=== PATIENT | female | born 1965 | race Caucasian/White ===

== ENCOUNTER 2025-07-21 14:29 | Emergency (ER) | payer MEDICAID, SELFPAY ==
[2025-07-21 14:30] VITALS: BMI 23.4
[2025-07-21 14:54] VITALS: BP 154/85; PULSE 88; RESP 18; TEMP 37.1; O2SAT 99
--- NOTE | 2025-07-21 15:00 | EDNOTE_ITS ---
ED Fall Injury RME/HPI General Chief Complaint: Shortness of Breath/Dyspnea Stated Complaint: MIGHT HAVE BROKEN MY RIB, FALL. SOB, HX OF COPD Time Seen by Provider: 07/21/25 15:01 Source: patient Arrival date/time: 07/21/25 14:29 59-year-old female with a history of COPD presents to the emergency room with a chief complaint of right sided rib pain and shortness of breath after a ground- level fall 1 week ago. Mode of arrival: ambulatory Limitations: no limitations Related Data Previous Rx's ?Medication ?Instructions ?Recorded albuterol sulfate 90 mcg/actuation 2 puff inhalation Q 4HR PRN dyspnea 03/18/17 aerosol inhaler (ProAir HFA) #1 inh docusate sodium 100 mg capsule 100 mg PO BID #60 caps 02/09/18 (Colace) hydrocodone 7.5 mg-acetaminophen 1 tab PO Q6H PRN pain #30 tabs 02/09/18 325 mg tablet (Eclectic) cyclobenzaprine 5 mg tablet 5 mg PO BID #5 tabs Allergies Allergy/AdvReac Type Severity Reaction Status Date / Time No Known Allergies Allergy Verified 07/21/25 14:30 Review of Systems Review of Systems Systems Reviewed: All systems reviewed, normal except as documented Constitutional Constitutional: Reports system reviewed and no additional complaints, except as documented, Denies fatigue, Denies fever(s), Denies headache(s) and Denies weakness Eyes Eyes: Reports system reviewed and no additional complaints, except as documented, Denies blurry vision and Denies change in vision ENT Ears, Nose, Mouth, and Throat: Reports system reviewed and no additional c omplaints, except as documented, Denies otalgia, Denies headache(s), Denies nasal congestion, Denies throat swelling and Denies vertigo Cardiovascular Cardiovascular: Reports system reviewed and no additional complaints, except as documented, Denies chest pain, Denies dyspnea and Denies dyspnea on exertion Respiratory Respiratory: Reports system reviewed and no additional complaints, except as documented, Denies chest congestion, Denies cough, Denies dyspnea, Denies dyspnea on exertion and Denies wheezing Gastrointestinal Gastrointestinal: Reports system reviewed and no additional complaints, except as documented, Denies abdominal pain, Denies cramping, Denies nausea and Denies vomiting Genitourinary Genitourinary: Reports system reviewed and no additional complaints, except as documented Musculoskeletal Musculoskeletal: Reports system reviewed and no additional complaints, except as documented, Reports arthralgias, Denies back pain and Reports joint swelling Integumentary/Breasts Skin/Breast: Reports system reviewed and no additional complaints, except as documented and Denies wounds Neurologic Neurologic: Reports system reviewed and no additional complaints, except as documented, Denies confusion, Denies headache(s), Denies lack of coordination, Denies vertigo and Denies weakness Psychiatric Psychiatric: Reports system reviewed and no additional complaints, except as documented, Denies anxiety, Denies confusion, Denies depression, Denies paranoia, Denies suicidal ideation and Denies tactile hallucinations Endocrine Endocrine: Reports system reviewed and no additional complaints, except as documented and Denies fatigue Hematologic/Lymphatic Hematologic/Lymphatic: Reports system reviewed and no additional complaints, except as documented and Denies lymphadenopathy Allergic/Immunologic Allergic/Immunologic: Reports system reviewed and no additional complaints, except as documented, Denies throat swelling, Denies urticaria and Denies wheezing ED Exam General Limitations: Present no limitations General appearance: Present alert and in no apparent distress Head Head exam: Present atraumatic Eye Eye exam: Present normal appearance, PERRL and EOMI ENT ENT exam: Present normal exam, normal oropharynx and mucous membranes moist Neck Neck exam: Present normal inspection, full ROM and trachea midline Chest Chest inspection: Present normal inspection, symmetric chest wall rise and tenderness Expanded Chest Exam Trauma: Present crepitus Breast: right: tenderness Respiratory Respiratory exam: Present normal lung sounds bilaterally Cardiovascular Cardiovascular exam: Present regular rate, normal rhythm and normal heart sounds Abdominal Exam Abdominal exam: Present soft and normal bowel sounds Extremities Exam Extremities exam: Present normal inspection and full ROM Back Exam Back exam: Present normal inspection and full ROM Neurological Exam Neurological exam: Present alert, oriented X3 and CN II-XII intact Psychiatric Psychiatric exam: Present normal affect and normal mood Skin Skin exam: Present warm, dry, intact and normal color Course Quality Measures none Orders Category Date Time Status XR ribs RT min 3V w CXR1V Stat Exams 07/21/25 15:00 Completed Ketorolac Inj [Toradol Inj] Med 07/21/25 15:00 Discontinued 30 mg IM X1 ONE Vital Signs Vital signs: Vital Signs Temperature 98.7 F 07/21/25 14:54 Pulse Rate 88 07/21/25 14:54 Respiratory Rate 18 07/21/25 14:54 Blood Pressure 154/85 H 07/21/25 14:54 Pulse Oximetry (%) 99 07/21/25 14:54 Oxygen Delivery Method Room Air 07/21/25 14:54 Fall MDM Narrative MDM Narrative:: 59-year-old female with a history of COPD presents to the emergency room with a chief complaint of right sided rib pain and shortness of breath after a ground- level fall 1 week ago. Patient is hemodynamically stable and in no apparent distress. Patient is not tachycardic not tachypneic and O2 saturation is 99% on room air Physical examination shows clear bilateral lung sounds there is no wheezing stridor or any abnormal breath sounds or any loss of breath sounds. X-ray of the ribs was completed and shows an acute fracture of the right fifth rib anteriorly. The patient was placed in a splint and discharged and educated to follow-up with the primary care provider for further management Patient was discharged and educated to follow-up with primary care provider in the next 24 to 48 hours and return to the emergency room for any evidence of worsening signs or symptoms Patient data External records reviewed:: [facility] previous records Clinical information provided by:: patient Social determinants that could affect healthcare access:: none Patient has the following chronic illnesses:: No chronic illness How is presenting disease/condition affected by chronic disease/condition?: no chronic disease Evaluation data The following diagnostics were reviewed and interpreted by me:: lab results and radiology exam(s) Lab and/or radiology exams considered but not ordered:: Labs and radiology exams considered and ordered Interpretation Summary: X-ray ribs-Findings: Normal heart size. No pneumothorax. Prominent osteopenia Acute fracture right fifth rib anteriorly with mild offset IMPRESSION: No pneumothorax Acute fracture right fifth rib anteriorly Medications / Prescriptions Medications or Prescriptions considered but not ordered:: Medication given Medication administrations:: Medication Administration History Discontinued Medications Ketorolac Tromethamine (Ketorolac Inj 60 Mg/2 Ml Vial) 30 mg IM X1 ONE Stop: 07/21/25 15:01 Last Admin: 07/21/25 16:29 Dose: 30 mg Documented By: AYDE Medication given Consultations Consultation(s) initiated? (list below): No Diagnosis Fall Differential Diagnosis: other (Rib contusion/rib fracture) Most likely diagnosis given after review of the tests above:: Rib fracture Admission Indicated Admission indicated?: not indicated Admission Request Was there a request for admission?: No Disposition Plan Disposition Plan: Discharge Discharge Attestation Discharge Attestation: The patient and all family members were given an opportunity to ask questions and understood the discharge instructions. Discharge instructions specifically effects, indications for sooner follow up or return to the emergency department, and the expected course of current diagnosis. Patient condition: Stable Discharge Plan Plan Patient Disposition: HOME (Self Care) Discharge Disposition comment: Stable Prescriptions/Referrals Prescriptions/Med Rec: No Action albuterol sulfate [ProAir HFA] 8.5 GM HFA aerosol inhaler 2 puff Inhalation Q4HR PRN (Reason: dyspnea) Qty: 1 0RF hydrocodone-acetaminophen [Eclectic] 7.5-325 mg tablet 1 tab PO Q6H MDD 4 PRN (Reason: pain) Qty: 30 0RF docusate sodium [Colace] 100 mg capsule 100 mg PO BID Qty: 60 0RF cyclobenzaprine 5 mg tablet 5 mg PO BID Qty: 5 0RF Rx Instructions: Please do not use heavy machinery, do not drive and watch a step while taking this medication. Referrals: Marlene Hoang PA-C [Primary Care Provider, Family Practice] - In 1 week Problem List Clinical Impression: Closed rib fracture Patient/Caregiver Discharge Instructions Education Materials: ED Rib Contusion or Minor Fracture Additional Instructions: Please follow-up with your primary care provider in the next 24 to 48 hours X-ray of the right ribs showed a fracture to your fifth rib. Please follow-up with your primary care provider as a referral to an child protection specialist may be indicated. Please keep your sling in place. For any evidence of worsening signs or symptoms return to emergency room immediately Print Language: Irish Stand Alone Forms: Emmy Award Info., Patient Portal Info Letter PA/ZO Supervising Physician JONES/ZO Supervising Physician: Dr. Gerardo
--- NOTE | 2025-07-21 15:00 | XR_ITS ---
Examination: Ribs, right, with PA chest, 4 views TECHNIQUE: Upright PA chest, AP, RPO, LPO right ribs total 4 views Exam date and time: July 21, 2025, 1503 hours INDICATIONS: Patient fell down one week ago with injury to the right chest, right rib pain Findings: Normal heart size. No pneumothorax. Prominent osteopenia Acute fracture right fifth rib anteriorly with mild offset IMPRESSION: No pneumothorax Acute fracture right fifth rib anteriorly
[2025-07-21] MEDS: KETOROLAC INJ 60 MG/2 ML VIAL 30 MG IM (16:29)
--- NOTE | 2025-07-21 16:48 | PC.NURSE ---
Patient fitted with medium sling, encouraged to wear daily and only take off to shower and sleep.
== END 2025-07-21 16:51 | disposition home or self-care (01) ==
PROVIDERS: Emergency Provider Family Medicine; PCP Physician Assistant
DX: S22.31XA Fracture of one rib, right side, initial encounter for closed fracture (principal); W18.30XA Fall on same level, unspecified, initial encounter; J44.9 Chronic obstructive pulmonary disease, unspecified
CPT/HCPCS: 71101; 96372; 99283; J1885